=== PATIENT | male | born 1960 | race Caucasian/White ===

== ENCOUNTER 2019-05-21 14:15 | Emergency (ER) | payer BC ==
[2019-05-21] MEDS ORDERED: Aspirin 81 MG Tab.Chew PO ONE (14:33)
[2019-05-21 14:39] VITALS: BP 149/68; PULSE 76
--- NOTE | 2019-05-21 14:42 | EDM.PDOC ---
ED HPI GENERAL MEDICAL PROBLEM - General Chief Complaint: Cardiovascular Problem Stated Complaint: CHEST PX Time Seen by Provider: 05/21/19 14:32 Source of Information: Reports: Patient History Limitations: Reports: No Limitations - History of Present Illness INITIAL COMMENTS - FREE TEXT/NARRATIVE: Patient is a 58-year-old gentleman who presents to the emergency department via private vehicle and has a complaint of chest pain. Patient was seen by Dr. Kwon this morning at the [facility]. Patient states the doctor's appointment was uneventful. Patient states that he was at work and had just finished lunch and developed epigastric and lower sternal ache. Patient became concerned and anxious so decided to have his take him to the ER. Patient states that for the last 2 days He's had some left upper back discomfort, but attributed that to some heavy lifting on Tuesday at work. Patient had a cardiac workup with Holter monitor approximately 3 years ago. Results said to be normal per patient and . Patient also has a history of GERD. Symptoms have completely resolved. At this time patient denies any chest pain, abdominal pain, nausea, vomiting, diarrhea, headache, strongly numbness, tingling, headache, fever, or similar symptoms previously. Onset: Today, Sudden Onset Date: 05/21/19 Onset Time: 14:00 Duration: Minutes: Location: Reports: Chest, Abdomen Quality: Reports: Ache Severity: Mild Improves with: Reports: Other (Spontaneously) Worsens with: Reports: None Context: Reports: Other (While at rest) Associated Symptoms: Reports: No Other Symptoms, Chest Pain. Denies: Cough, Fever/Chills, Headaches, Nausea/Vomiting, Shortness of Breath - Related Data Allergies Allergy/AdvReac Type Severity Reaction Status Date / Time No Known Drug Allergies Allergy Cannot Verified 05/21/19 14:39 Remember Home Meds: Home Meds Aspirin 81 mg PO DAILY 11/12/13 [History] Loratadine [Claritin] 10 mg PO DAILY 11/12/13 [History] hydroCHLOROthiazide [Hydrochlorothiazide] 25 mg PO DAILY 11/12/13 [History] amLODIPine Besylate [Amlodipine Besylate] 5 mg PO DAILY 03/04/16 [History] Azelastine/Fluticasone [Dymista Nasal [place]] 1 spray NASBOTH DAILY 05/21/19 [ History] Esomeprazole Magnesium [Nexium 24Hr] 20 mg PO DAILY 05/21/19 [History] Vit B1 Mn/B2/B3/B5/B6/B12/C/Fa [B Complex with Vitamin C] 1 each PO DAILY [History] Past Medical History HEENT History: Reports: Impaired Vision Cardiovascular History: Reports: Hypertension Respiratory History: Reports: Other (See Below) Other Respiratory History: bronchitis Gastrointestinal History: Reports: GERD, Helicobacter Pylori, Hiatal Hernia Musculoskeletal History: Reports: Fracture Psychiatric History: Reports: Anxiety - Infectious Disease History Infectious Disease History: Reports: Chicken Pox, Helicobacter Pylori - Past Surgical History HEENT Surgical History: Reports: Other (See Below) GI Surgical History: Reports: Colonoscopy, Small Bowel, Other (See Below) Musculoskeletal Surgical History: Reports: Other (See Below) Social & Family History - Family History HEENT: Reports: None Cardiac: Reports: CAD, [place], Pacemaker, Other (See Below) Other Cardiac Family History: Mother with hypertension, paternal grandfather of a myocardial infarction at age 62, his father had stents in the pacemaker Respiratory: Reports: None GI: Reports: None OBGYN: Reports: None Musculoskeletal: Reports: None Neurological: Reports: None Psychiatric: Reports: None Endocrine/Metabolic: Reports: None Hematologic: Reports: None Immunologic: Reports: None Dermatologic: Reports: None Oncologic: Reports: Other (See Below) - Living Situation & Occupation Living situation: Reports: Occupation: Employed ED ROS GENERAL - Review of Systems Review Of Systems: ROS reveals no pertinent complaints other than HPI. Constitutional: Reports: No Symptoms HEENT: Reports: No Symptoms Respiratory: Reports: No Symptoms Cardiovascular: Reports: Chest Pain Endocrine: Reports: No Symptoms GI/Abdominal: Reports: Abdominal Pain : Reports: No Symptoms Musculoskeletal: Reports: No Symptoms, Back Pain (Left upper) Skin: Reports: No Symptoms Neurological: Reports: No Symptoms Psychiatric: Reports: Anxiety Hematologic/Lymphatic: Reports: No Symptoms Immunologic: Reports: No Symptoms ED EXAM, GENERAL - Physical Exam Exam: See Below Exam Limited By: No Limitations General Appearance: Alert, WD/WN, No Apparent Distress Eye Exam: Bilateral Eye: Normal Inspection Nose: Normal Inspection, Normal Mucosa, No Blood Throat/Mouth: Normal Inspection, Normal Oropharynx, No Airway Compromise Head: Atraumatic, Normocephalic Neck: Normal Inspection, Supple, Non-Tender, Full Range of Motion Respiratory/Chest: No Respiratory Distress, Lungs Clear, Normal Breath Sounds, No Accessory Muscle Use, Chest Non-Tender Cardiovascular: No Murmur, Bradycardia Peripheral Pulses: 2+: Brachial (L), Brachial (R), Radial (L), Radial (R) GI/Abdominal: Normal Bowel Sounds, Soft, Non-Tender, No Organomegaly, No Distention, No Abnormal Bruit, No Mass Back Exam: Paraspinal Tenderness (Left thorax and scapula). No: CVA Tenderness (L), CVA Tenderness (R) Neurological: Alert, Oriented, Normal Cognition Psychiatric: Normal Affect, Normal Mood Skin Exam: Warm, Dry, Intact, Normal Color, No Rash Lymphatic: No Adenopathy EKG INTERPRETATION EKG Date: 05/21/19 Time: 14:20 Rhythm: Other (Sinus rhythm with First degree AV block) Rate (Beats/Min): 68 Pilot: Normal P-Wave: Present QRS: Normal ST-T: Normal (Nonspecific) Comparison: No Change Course - Vital Signs Last Recorded V/S: Last Vital Signs Temp 97.7 F 05/21/19 14:33 Pulse 76 05/21/19 14:33 Resp 23 H 05/21/19 14:33 BP 149/68 H 05/21/19 14:33 Pulse Ox 98 05/21/19 14:33 - Orders/Labs/Meds Labs: Laboratory Tests 05/21/19 05/21/19 05/21/19 Range/Units 14:30 14:30 14:30 WBC 6.78 (5.00-10.00) 10^3/uL RBC 5.05 (4.50-6.00) 10^6/uL Hgb 15.4 (13.0-17.0) g/dL Hct 43.0 (40.0-52.0) % MCV 85.1 (82.0-92.0) fL MCH 30.5 (27.0-31.0) pg MCHC 35.8 (32.0-36.0) g/dL RDW 11.3 L (11.5-14.5) % Plt Count 249 (150-400) 10^3/uL MPV 10.3 (7.4-10.4) fL Immature Gran % (Auto) 0.1 (0.0-5.0) % Neut % (Auto) 67.0 (50.0-70.0) % Lymph % (Auto) 22.7 (20.0-40.0) % [place] % (Auto) 9.0 H (2.0-8.0) % Eos % (Auto) 0.9 L (1.0-3.0) % Baso % (Auto) 0.3 (0.0-1.0) % Immature Gran # (Auto) 0.01 (0.00-0.50) 10^3/uL Neut # (Auto) 4.54 (2.50-7.00) 10^3/uL Lymph # (Auto) 1.54 (1.00-4.00) 10^3/uL [place] # (Auto) 0.61 (0.10-0.80) 10^3/uL Eos # (Auto) 0.06 L (0.10-0.30) 10^3/uL Baso # (Auto) 0.02 (0.00-0.10) 10^3/uL PT 9.7 (8.9-11.4) SEC INR 1.0 (0.9-1.1) APTT 24.5 (23.1-31.3) SEC Sodium 144 (136-145) mmol/L Potassium 3.5 (3.3-5.3) mmol/L Chloride 106 (98-115) mmol/L Carbon Dioxide 29.2 (21.0-32.0) mmol/L Anion Gap 12.3 (5-15) mmol/L BUN 13 (6-25) mg/dL Creatinine 0.92 (0.51-1.17) mg/dL Est Cr Clr Drug Dosing 81.22 mL/min Estimated GFR (MDRD) > 60 mL/min Glucose 124 H (75 - 99) mg/dL Calcium 8.9 (8.7-10.3) mg/dL Total Bilirubin 0.5 (0.2-1.0) mg/dL AST 21 (15-37) U/L ALT 40 (12-78) U/L Alkaline Phosphatase 80 (46-116) IU/L Troponin I < 0.04 (0.00-0.070) ng/mL Total Protein 7.2 (6.4-8.2) g/dL Albumin 3.60 (3.00-4.80) g/dL Lipase 188 (73-393) U/L Meds: Medications Discontinued Medications Generic Name Dose Route Start Last Admin Trade Name Nick PRN Reason Stop Dose Admin Aspirin 324 mg 05/21/19 14:33 05/21/19 14:20 Aspirin PO 05/21/19 14:34 324 mg ONETIME ONE Administration - Radiology Interpretation Free Text/Narrative:: Chest x-ray shows no acute cardiopulmonary process - Re-Assessments/Exams Free Text/Narrative Re-Assessment/Exam: 05/21/19 15:25 Patient afebrile, vital signs stable, no discomfort while in ER. EKG shows no TN, troponin is negative, rest of lab work within normal limits. Patient will follow-up at [facility] in next 2-3 days. 05/21/19 15:29 Departure - Departure Time of Disposition: 15:26 Disposition: Home, Self-Care 01 Condition: Good Clinical Impression: Anxiety Chest pain Qualifiers: Chest pain type: unspecified Qualified Code(s): R07.9 - Chest pain, unspecified Instructions: Nonspecific Chest Pain, [id number] Referrals: Letty Justice MD [Primary Care Provider] - Forms: ED Department Discharge Additional Instructions: Follow-up with Dr. Worthy in the next 2-3 days. Return to emergency department sooner if symptoms continue or worsen - Assessment/Plan Assessment:: Atypical chest pain Plan: Follow-up at [facility]
--- NOTE | 2019-05-21 15:00 | CR ---
[id number] RAD/RAD Chest PA or AP 1V EXAM: RAD Chest PA or AP 1V INDICATION: CHEST PAIN. COMPARISON: March 04, 2016. DISCUSSION: Cardiomediastinal silhouette is normal in size and contour. Elevation of the left hemidiaphragm. No infiltrate, effusion, pneumothorax, or edema. IMPRESSION: No acute cardiopulmonary abnormality. Luis Bean DO 05/21/19 [id number] Thank you for allowing us to participate in the care of your patient.
[2019-05-21 15:06] LABS: ANION GAP 12.3 mmol/L (5-15); CHLORIDE,CL 106 mmol/L (98-115); SODIUM,NA 144 mmol/L (136-145)
== END 2019-05-21 15:35 | disposition home or self-care (01) ==
LOC: KA.ED 14:15
DX: F41.9 Anxiety disorder, unspecified (principal); R07.89 Other chest pain; I10 Essential (primary) hypertension; K21.9 Gastro-esophageal reflux disease without esophagitis; Z79.82 Long term (current) use of aspirin; Z79.899 Other long term (current) drug therapy
CPT/HCPCS: 36415; 71045; 80053; 83690; 84484; 85025; 85610; 85730; 93005; 99285; A9270

== ENCOUNTER 2023-04-04 12:48 | Emergency (ER) | payer BC ==
[2023-04-04] MEDS ORDERED: traMADol 50 MG Tab PO ONE (12:55)
[2023-04-04 12:59] VITALS: BP 141/79; PULSE 74
[2023-04-04 13:21] LABS: BASOPHILS ABSOLUTE AUTO 0.03 10^3/uL (0.00-0.10); BASOPHILS PERCENT AUTO 0.4 % (0.0-1.0); EOSINOPHILS ABSOLUTE AUTO 0.08 10^3/uL (0.10-0.30); HEMATOCRIT 40.9 % (40.0-52.0); HEMOGLOBIN 14.2 g/dL (13.0-17.0); IMMATURE GRAN ABSOLUTE AUTO 0.01 10^3/uL (0.00-0.50); IMMATURE GRAN PERCENT AUTO 0.1 % (0.0-5.0); LYMPHOCYTES ABSOLUTE AUTO 1.91 10^3/uL (1.00-4.00); LYMPHOCYTES PERCENT AUTO 24.9 % (20.0-40.0); MEAN CORPUSCULAR HEMOGLOBIN 28.9 pg (27.0-31.0); MEAN CORPUSCULAR HGB CONC 34.7 g/dL (32.0-36.0); MEAN CORPUSCULAR VOLUME 83.3 fL (82.0-92.0); MEAN PLATELET VOLUME 10.4 fL (7.4-10.4); MONOCYTES ABSOLUTE AUTO 0.71 10^3/uL (0.10-0.80); MONOCYTES PERCENT AUTO 9.3 % (2.0-8.0); NEUTROPHILS ABSOLUTE AUTO 4.92 10^3/uL (2.50-7.00); NEUTROPHILS PERCENT AUTO 64.3 % (50.0-70.0); PLATELET COUNT,PLT 264 10^3/uL (150-400); RED BLOOD CELL COUNT 4.91 10^6/uL (4.50-6.00); RED CELL DISTRIBUTION WIDTH 12.1 % (11.5-14.5); WHITE BLOOD CELL COUNT,WBC 7.66 10^3/uL (5.00-10.00)
[2023-04-04 13:30] LABS: ALBUMIN 3.24 g/dL (3.40-5.00); ANION GAP 10.2 mmol/L (5-15); BILIRUBIN TOTAL 0.4 mg/dL (0.2-1.0); CALCIUM 8.8 mg/dL (8.7-10.3); CARBON DIOXIDE,CO2 29.3 mmol/L (21.0-32.0); CREATININE 0.86 mg/dL (0.51-1.17); EST CRCL DRUG DOSING (CG) 81.13 mL/min; POTASSIUM,K 3.5 mmol/L (3.5-5.1); PROTEIN TOTAL,TP 6.9 g/dL (6.4-8.2)
== END 2023-04-04 14:48 | disposition home or self-care (01) ==
LOC: KA.ED 12:48
DX: H81.12 Benign paroxysmal vertigo, left ear (principal); I10 Essential (primary) hypertension; K21.9 Gastro-esophageal reflux disease without esophagitis; E66.9 Obesity, unspecified; Z68.33 Body mass index [BMI] 33.0-33.9, adult; Z88.8 Allergy status to other drugs, medicaments and biological substances; Z79.82 Long term (current) use of aspirin
CPT/HCPCS: 70450; 80053; 85025; 93010; 99284